=== PATIENT | female | born 1955 | race Caucasian/White ===

== ENCOUNTER 2018-08-18 10:53 | Outpatient (CLI) | payer BC | END 2018-08-18 10:54 | disposition home or self-care (01) | LOC: BICMAMMO 10:53 | PROVIDERS: ATTEND Nurse Practitioner Family | DX: Z12.31 Encounter for screening mammogram for malignant neoplasm of breast (principal); Z80.3 Family history of malignant neoplasm of breast | CPT/HCPCS: 77063; 77067 ==

== ENCOUNTER 2019-01-19 09:04 | Outpatient (CLI) | payer BC ==
--- NOTE | 2019-01-19 10:32 | CT ---
CT ABDOMEN AND PELVIS WITH ORAL AND IV CONTRAST: HISTORY: Left upper quadrant pain, elevated LFTs, fatty liver. COMPARISON: 06/10/2016. FINDINGS: The lung bases are clear. Changes of mild fatty infiltration of the liver are again noted. No hepat ic mass or abnormal biliary ductal dilatation is seen. The spleen, pancreas, adrenal glands, and rig ht kidney are normal. A small probable cyst in the left upper pole is again seen. No calcified gall stones are identified. No free air, free fluid, or lymphadenopathy is seen in the abdomen or pelvis. There is colonic diver ticulosis without evidence of diverticulitis. The patient is post hysterectomy. There are vascular calcifications without evidence of aneurysmal dilatation of the abdominal aorta. There are degenerat pia changes in the spine. Small fat-containing umbilical hernia is again noted. IMPRESSION: Stable exam. No acute process. POS: [facility]
[2019-01-19] MEDS ORDERED: Iopamidol 370 76% 100 ML VIAL ONE (14:19)
== END 2019-01-19 09:05 | disposition home or self-care (01) ==
LOC: BICCT 09:04
PROVIDERS: ATTEND Internal Medicine Gastroenterology
DX: K76.0 Fatty (change of) liver, not elsewhere classified (principal); K62.5 Hemorrhage of anus and rectum; K58.0 Irritable bowel syndrome with diarrhea; R10.32 Left lower quadrant pain
CPT/HCPCS: 74177; 82565; Q9967

== ENCOUNTER 2019-08-23 09:27 | Outpatient (CLI) | payer BC ==
--- NOTE | 2019-08-23 09:59 | MMO ---
Bilateral MAMMO Bilat Screen [facility]. CLINICAL HISTORY: Patient is 64 years old and is seen for screening. The patient has the following family history of breast cancer: mother. The patient has no personal history of cancer. VIEWS: The views performed were: bilateral craniocaudal with tomosynthesis and bilateral mediolateral oblique with tomosynthesis. FILMS COMPARED: The present examination has been compared to prior imaging studies performed at [facility] on 09/27/2013, 02/20/2015, 11/18/2016 and 08/18/2018. This study has been interpreted with the assistance of computer-aided detection. MAMMOGRAM FINDINGS: There are scattered fibroglandular densities. There are no suspicious masses, suspicious calcifications, or new areas of architectural distortion. IMPRESSION: THERE IS NO MAMMOGRAPHIC EVIDENCE OF MALIGNANCY. A ROUTINE FOLLOW-UP MAMMOGRAM IN 1 YEAR IS RECOMMENDED. THE RESULTS OF THIS EXAM WERE SENT TO THE PATIENT. ACR BI-RADS Category 1 - Negative MAMMOGRAPHY NOTE: 1. A negative mammogram report should not delay a biopsy if a dominant of clinically suspicious mass is present. 2. Approximately 10% to 15% of breast cancers are not detected by mammography. 3. Adenosis and dense breasts may obscure an underlying neoplasm. Reported by: KAILASH ANGULO MD Electonically Signed: [id number]
== END 2019-08-23 09:28 | disposition home or self-care (01) ==
LOC: BICMAMMO 09:27
PROVIDERS: ATTEND Nurse Practitioner Family
DX: Z12.31 Encounter for screening mammogram for malignant neoplasm of breast (principal); Z80.3 Family history of malignant neoplasm of breast
CPT/HCPCS: 77063; 77067

== ENCOUNTER 2020-01-26 10:45 | Outpatient (CLI) | payer BC ==
--- NOTE | 2020-01-26 12:18 | RAD ---
LEFT HIP 2 VIEWS: Date: 01/26/2020 HISTORY: Left hip pain. FINDINGS/IMPRESSION: No fracture, dislocation, or bony destruction is seen. Mild degenerative changes are present. POS: [facility]
== END 2020-01-26 10:46 | disposition home or self-care (01) ==
LOC: RAD-FRANK 10:45
PROVIDERS: ATTEND Nurse Practitioner Family
DX: M25.552 Pain in left hip (principal); M16.12 Unilateral primary osteoarthritis, left hip
CPT/HCPCS: 36415; 80053; 80061; 82306; 83036; 84443; 85025

== ENCOUNTER 2020-02-21 | Outpatient (CLI) | payer BC | END 2020-02-21 10:12 | disposition home or self-care (01) | DX: Z13.820 Encounter for screening for osteoporosis (principal); R79.89 Other specified abnormal findings of blood chemistry; M85.89 Other specified disorders of bone density and structure, multiple sites ==

== ENCOUNTER 2020-09-06 13:23 | Outpatient (CLI) | payer BC ==
--- NOTE | 2020-09-06 14:13 | MMO ---
Bilateral MAMMO Bilat Screen [facility]. CLINICAL HISTORY: Patient is 65 years old and is seen for screening. The patient has the following family history of breast cancer: mother. The patient has no personal history of cancer. VIEWS: The views performed were: bilateral craniocaudal with tomosynthesis and bilateral mediolateral oblique with tomosynthesis. FILMS COMPARED: The present examination has been compared to prior imaging studies performed at [facility] on 02/20/2015, 11/18/2016, 08/18/2018 and 08/23/2019. This study has been interpreted with the assistance of computer-aided detection. MAMMOGRAM FINDINGS: There are scattered fibroglandular densities. There are no suspicious masses, suspicious calcifications, or new areas of architectural distortion. IMPRESSION: THERE IS NO MAMMOGRAPHIC EVIDENCE OF MALIGNANCY. A ROUTINE FOLLOW-UP MAMMOGRAM IN 1 YEAR IS RECOMMENDED. THE RESULTS OF THIS EXAM WERE SENT TO THE PATIENT. ACR BI-RADS Category 1 - Negative MAMMOGRAPHY NOTE: 1. A negative mammogram report should not delay a biopsy if a dominant of clinically suspicious mass is present. 2. Approximately 10% to 15% of breast cancers are not detected by mammography. 3. Adenosis and dense breasts may obscure an underlying neoplasm. Reported by: KAILASH ANGULO MD Electonically Signed: [id number]
== END 2020-09-06 13:24 | disposition home or self-care (01) ==
LOC: BICMAMMO 13:23
PROVIDERS: ATTEND Nurse Practitioner Family
DX: Z12.31 Encounter for screening mammogram for malignant neoplasm of breast (principal); Z80.3 Family history of malignant neoplasm of breast
CPT/HCPCS: 77063; 77067

== ENCOUNTER 2021-10-05 09:40 | Outpatient (CLI) | payer BC | END 2021-10-05 09:41 | disposition home or self-care (01) | LOC: BICMAMMO 09:40 | PROVIDERS: ATTEND Physician Assistant | DX: Z12.31 Encounter for screening mammogram for malignant neoplasm of breast (principal); Z80.3 Family history of malignant neoplasm of breast | CPT/HCPCS: 77063; 77067 ==